=== PATIENT | male | born 1975 | race Caucasian/White ===

== ENCOUNTER 2017-10-24 10:48 | Day surgery (SDC) | payer OTHER ==
[~2017-10-24 10:48] MED LIST: Buffered Lidocaine 0.9% SYRIN* 5 ML/SYR SYRINGE INTRADERM ONE; Famotidine IV* 10 MG/ML 2 ML (20 mg) IV ONE
[2017-10-24] MEDS ORDERED: Famotidine IV* 10 MG/ML 2 ML (20 mg) ONE (11:18)
[2017-10-24] MEDS ORDERED: Oxymetazoline 0.05% NASAL SPR* 15 ML BTL ONE ×2 (12:57→13:33)
[2017-10-24] MEDS ORDERED: Propofol* 10 MG/ML 20 ML BTL IV PUSH ONE (13:00)
[2017-10-24] MEDS ORDERED: fentaNYL* 50 MCG/ML 2 ML VIAL (100 MCG VIAL) ONE (13:00)
[2017-10-24] MEDS ORDERED: Ondansetron INJ* 2 MG/ML VIAL ONE (13:00)
[2017-10-24] MEDS ORDERED: Lidocaine 2% PF * 5 ML VIAL ONE (13:00)
[2017-10-24] MEDS ORDERED: Dexamethasone IV* 4 MG/ML 1 ML (4 MG) ONE (13:00)
[2017-10-24] MEDS ORDERED: Midazolam* 1 MG/ML 5 ML VIAL (5 MG) ONE (13:01)
[2017-10-24] MEDS ORDERED: Lidocaine 4% TOPICAL* 50 ML TOP.SOLN ONE (13:33)
[2017-10-24] MEDS ORDERED: Lidocain 1% EPI 1:100,000 * 30 ML MDV ONE (13:53)
[2017-10-24] MEDS ORDERED: fentaNYL* 50 MCG/ML 2 ML VIAL (100 MCG VIAL) IV PRN (15:06)
[2017-10-24] MEDS ORDERED: Naloxone* 0.4 MG/ML 1 ML VIAL IV PRN (15:06)
[2017-10-24] MEDS ORDERED: Acetaminophen IV 1GM/100ML * 1,000 MG/100 ML VIAL IVPB ONE (15:06)
[2017-10-24] MEDS ORDERED: Ondansetron INJ* 2 MG/ML VIAL IV PRN (15:06)
[2017-10-24] MEDS ORDERED: Acetaminophen ADULT LIQ* 650 MG/20.3 ML UDC ONE (15:24)
[2017-10-24] MEDS ORDERED: Acetaminophen IV 1GM/100ML * 100 ML ONE (15:24)
[2017-10-24] MEDS ORDERED: hydrALAZINE IV* 20 MG/ML VIAL ONE (15:42)
[2017-10-24] MEDS ORDERED: oxyCODONE ORAL.SOLN* 5 MG/5 ML UDC ONE (16:08)
[2017-10-24 16:18] VITALS: BP 147/78
--- NOTE | 2017-10-25 03:43 | OP ---
DATE OF OPERATION: 10/24/17 - [facility] DATE OF : 77 ATTENDING SURGEON: King Bee MD DIRECTOR EHS: None. ANESTHESIA: General. PRE-OP DIAGNOSES: Deviated nasal septum and inferior turbinate hypertrophy, bilateral. POST-OP DIAGNOSES: Deviated nasal septum and inferior turbinate hypertrophy, bilateral. OPERATIVE PROCEDURE: Septoplasty with bilateral outfracture and cautery of the inferior turbinate. ESTIMATED BLOOD LOSS: Less than 50 cc. SPECIMENS: None. Septal cartilage and bone were discarded. FINDINGS: There was severe left septal deviation with posterior spur with bilateral inferior turbinate hypertrophy. DETAILS OF PROCEDURE: This is a 42-year-old male, who presents for elective septoplasty with inferior turbinate reduction. General anesthesia was induced and LMA was placed. The patient was then draped and a time-out was performed. Both nostrils were packed with pledgets soaked in Afrin and 4% lidocaine. The septum was then infiltrated with 1% lidocaine with epinephrine on both sides. The inferior turbinates were infiltrated as well. Once adequate time had been allotted for vasoconstriction, the procedure was begun. A left hemitransfixion incision was made with a #15 blade. A left mucoperichondrial flap was elevated. It was elevated over not only the quadrangular cartilage, but the more posterior bone of the septum including the septal spur. There was also prominent maxillary crest, which was protruding into the left nasal cavity. A # 15 blade was then used to make a vertical incision through the quadrangular cartilage approximately 5 mm posterior to the mucosal incision. This allowed for access to the submucoperichondrial space on the right side. A mucoperichondrial flap was then elevated on the right. Once the flaps were elevated on both sides, a Chinmay swivel knife was brought into the field. It was used to resect a single large piece of the quadrangular cartilage, which was then set aside for later use for reconstruction. The maxillary crest was then taken down with 4 mm osteotome. The more posterior septal deviation and spur were removed with the combination of the double action through cutting scissors and the double action rongeur. Once all deviated portions of the septal cartilage and bone were removed, the initial piece of cartilage that was taken out was morselized sliced and flattened. It was placed back between the mucoperichondrial flaps and sutured in position with a quilting stitch. The turbinates were then in-fractured, 3 passes were made through each turbinate with the Elmed bipolar device. The turbinates were then outfractured. The hemitransfixion incision was then closed with 4-0 chromic. Septal splints were then placed and sutured in position with a 4-0 Prolene. A drip pad was applied. The patient was then extubated and delivered to the PACU in stable condition. [id number]/[facility] #: [id number] [facility]ENTER[facility]ali
== END 2017-10-24 16:38 | disposition home or self-care (01) ==
LOC: OR 10:48
PROVIDERS: ATTEND Otolaryngology
DX: J34.2 Deviated nasal septum (principal); J34.3 Hypertrophy of nasal turbinates; I10 Essential (primary) hypertension; M06.9 Rheumatoid arthritis, unspecified; Z72.0 Tobacco use
CPT/HCPCS: A9270-GY; J0360; J1100; J2250; J2405; J2704; J3010